=== PATIENT | male | born 1990 | race Caucasian/White ===

== ENCOUNTER 2016-09-24 12:29 | Emergency (ER) | payer SELFPAY ==
[~2016-09-24] VITALS: Ht 172.7 cm; Wt 81.0 kg
[2016-09-24 12:33] VITALS: Ht 172.7 cm; Wt 81.0 kg
[2016-09-24] MEDS ORDERED: AMOX1TAB10 PO (13:11)
[2016-09-24] MEDS ORDERED: IBUP-1542 PO (13:11)
--- NOTE | 2016-09-24 13:20 | ERA ---
ER Documentation Chief Complaint Date/Time DATE: 09/24/16 TIME: 13:[address] HPI The patient is a 26-year-old male, presenting with right-sided sore throat, associated with intermittent cough for the last couple days, right ear pain, denies dental pain, denies fever, chills, neck pain, chest pain, dyspnea, abdominal pain, vomiting, dysuria, diarrhea. He smokes and drinks Past medical/surgical history: None ROS All systems reviewed and are negative except as per history of present illness. Medications Home Meds Active Scripts Ibuprofen* (Motrin*) 600 Mg Tab, 600 MG PO Q6H Y for PAIN AND OR ELEVATED TEMP, #30 TAB Prov:JOHNATHAN RICKS MD 09/24/16 Amoxicillin/Potassium Clav (Amox-Clav 875-125 mg Tablet) 875-125 mg Tab, 1 TAB PO BID for 10 Days, #20 TAB Prov:JOHNATHAN RICKS MD 09/24/16 Allergies Allergies: Coded Allergies: No Known Drug Allergies (Verified Allergy, 05/16/11) PMhx/Soc History of Surgery: No Anesthesia Reaction: No Hx Neurological Disorder: No Hx Respiratory Disorders: No Hx Cardiac Disorders: No Hx Psychiatric Problems: No Hx Miscellaneous Medical Probl: No Hx Alcohol Use: Yes (OCCASSIONAL) Hx Substance Use: Yes (SOMETIMES WEED) Hx Tobacco Use: No Physical Exam Vitals Vital Signs Date Time Temp Pulse Resp B/P Pulse Ox O2 Delivery O2 Flow Rate FiO2 09/24/16 12:33 98.6 77 20 159/99 100 Physical Exam Const: No acute distress. Head: Atraumatic. Eyes: Normal Conjunctiva. ENT: Normal External Ears, Nose and Mouth. Right tonsils is edematous , erythematous, no exudate Neck: Full range of motion. No meningismus. Resp: Clear to auscultation bilaterally. Cardio: Regular rate and rhythm. Abd: Soft, non distended, normal bowel sounds, non tender. Skin: No petechiae or rashes. Back: No midline or flank tenderness. Ext: No cyanosis, or edema. Neur: Awake and alert. No focal deficit Psych: Normal Mood and Affect. Results 24 hrs Current Medications Medications (Trade) Dose Ordered Sig/Kacie Route PRN Reason Start Time Stop Time Status Last Admin Dose Admin Amoxicillin/ Clavulanate Potassium (Augmentin) 875 mg ONCE ONCE PO 09/24/16 13:30 09/24/16 13:31 Ibuprofen (Motrin) 600 mg ONCE ONCE PO 09/24/16 13:30 09/24/16 13:31 Procedures/MDM MEDICAL MAKING DECISION: The patient is a 26-year-old male, presenting with acute tonsillitis. He was treated with Augmentin and Motrin in the ER The differential diagnoses considered include but are not limited to tonsillitis , early edward-tonsillar abscess, pharyngeal cellulitis Departure Diagnosis: Primary Impression: Tonsillitis Condition: Good Patient Instructions: When Your Child Has Pharyngitis or Tonsillitis Referrals: [facility] YOU HAVE RECEIVED A MEDICAL SCREENING EXAM AND THE RESULTS INDICATE THAT YOU DO NOT HAVE A CONDITION THAT REQUIRES URGENT TREATMENT IN THE EMERGENCY DEPARTMENT. FURTHER EVALUATION AND TREATMENT OF YOUR CONDITION CAN WAIT UNTIL YOU ARE SEEN IN YOUR DOCTORS OFFICE WITHIN THE NEXT 1-2 DAYS. IT IS YOUR RESPONSIBILITY TO MAKE AN APPOINTMENT FOR FOLOW-UP CARE. IF YOU HAVE A PRIMARY DOCTOR --you should call your primary doctor and schedule an appointment IF YOU DO NOT HAVE A PRIMARY DOCTOR YOU CAN CALL OUR PHYSICIAN REFERRAL HOTLINE AT IF YOU CAN NOT AFFORD TO SEE A PHYSICIAN YOU CAN CHOSE FROM THE FOLLOWING [facility] [address] [facility]. [facility] [address] [facility]. [facility] [address] [facility] [facility] [address] [facility]. [facility] [address] [facility]. [facility]. [address] Additional Instructions: Call your primary care doctor TOMORROW for an appointment during the next 1-2 days or return to the ER.See the doctor sooner or return here if your condition worsens before your appointment time. He was discharged with Augmentin and Motrin The patient's blood pressure was elevated (>120/80) but appears stable without evidence of hypertension emergency or urgency. The patient was counseled about the risks of hypertension and urged to pursue outpatient monitoring and therapy within a week with their primary care physician. JOHNATHAN RICKS MD Sep 24, 2016 13:19
[2016-09-24] MEDS ORDERED: IBUPROFEN 600 MG TAB PO ONE (13:30)
[2016-09-24] MEDS ORDERED: AMOXICILLIN/CLAV 875 MG TAB PO ONE (13:30)
== END 2016-09-24 13:26 | disposition home or self-care (01) ==
LOC: FTE 12:29
DX: J03.90 Acute tonsillitis, unspecified (principal)
CPT/HCPCS: 99283